=== PATIENT | male | born 1965 | race Caucasian/White ===

== ENCOUNTER 2017-06-23 22:28 | Emergency (ER) | payer OTHER ==
[~2017-06-23] VITALS: Ht 177.8 cm; Wt 86.2 kg
[~2017-06-23 22:28] MED LIST: BENTYL10 M1 PO; ZOFRAN4 M2 PO
--- NOTE | 2017-06-23 22:54 | ED GI/GU/ABDOMINAL COMPLAINT ---
History of Present Illness General Chief Complaint: Nausea, Vomiting, Diarrhea Stated Complaint: +N/V/D SINCE NOON Source: patient, old records Exam Limitations: no limitations Vital Signs & Intake/Output Vital Signs & Intake/Output Vital Signs Date Time Temp Pulse Resp B/P B/P Pulse O2 O2 Flow FiO2 Mean Ox Delivery Rate 06/24 0105 98.9 90 16 112/60 98 Room Air 06/23 2243 100.3 110 19 103/69 98 Room Air ED Intake and Output 06/24 0000 06/23 1200 Intake Total Output Total Balance Patient 190 lb Weight Weight Estimated Measurement Method Allergies Coded Allergies: No Known Allergies (06/15/16) Reconcile Medications Dicyclomine Hydrochloride (Bentyl) 10 MG CAPSULE 1 CAP PO TID PRN CRAMPS Hyoscyamine Sulfate (Levsin-Sl) 0.125 MG TAB.SUBL 1 TAB SL Q4P PRN abdominal cramping Ondansetron (Zofran Odt) 4 MG TAB.RAPDIS 1 TAB SL TID PRN nausea Ondansetron HCl (Zofran) 4 MG TABLET 1 TAB PO Q8P NAUSEA Triage Note: RECEIVED 51 YO MALE C/O NAUSEA, VOMITING, DIARRHEA AND ABDOMINAL PAIN, STARTED TODAY ABOUT 12 NOON. PT VOMITED MANY TIMES. Triage Nurses Notes Reviewed? yes Onset: Abrupt Duration: hour(s): Timing: recent history Quality/Severity: cramping, moderate Severity Numbers: 8 Location: generalized abdomen HPI: 51yo male presents to ED complaining of nausea and vomiting beginning today around noon. Patient states that he ate a breakfast as normal however following onset of symptoms he has not been able to tolerate food or liquids. Patient states he has had similar symptoms in the past, last approximately 1 year ago. Patient complaining of generalized abdominal pain, described as cramping, /10. He denies fevers, chills, diarrhea, constipation, recent travel, changes in diet , consumption of raw meats, sick contact. (Nena CAREY,Suad Reed) Past History Travel History Traveled to [place] past 21 day No Medical History Any Pertinent Medical History? none Neurological: NONE EENT: NONE Cardiovascular: NONE Respiratory: NONE Gastrointestinal: NONE Hepatic: NONE Renal: NONE Musculoskeletal: NONE Psychiatric: NONE Endocrine: NONE Blood Disorders: NONE Cancer(s): NONE Surgical History Surgical History: hernia repair Psychosocial History What is your primary language Swiss Tobacco Use: Never used Family History Hx Contributory? No (Suad Hodges) Review of Systems Review of Systems Constitutional: Reports: no symptoms. EENTM: Reports: no symptoms. Respiratory: Reports: no symptoms. Cardiovascular: Reports: no symptoms. GI: Reports: see HPI. Genitourinary: Reports: no symptoms. Musculoskeletal: Reports: no symptoms. Skin: Reports: no symptoms. Neurological/Psychological: Reports: no symptoms. Hematologic/Endocrine: Reports: no symptoms. Immunologic/Allergic: Reports: no symptoms. All Other Systems: Reviewed and Negative (Suad Hodges) Physical Exam Physical Exam General Appearance: well developed/nourished, no apparent distress, alert, awake Head: atraumatic, normal appearance Eyes: Bilateral: normal appearance. Ears, Nose, Throat, Mouth: hearing grossly normal Neck: normal inspection, supple, full range of motion Respiratory: normal breath sounds, no respiratory distress, lungs clear Cardiovascular: regular rate/rhythm Gastrointestinal: normal bowel sounds, soft, non-tender, no organomegaly Back: normal inspection, normal range of motion Extremities: normal range of motion Neurologic/Psych: awake, alert, oriented x 3 Skin: intact, normal color, warm/dry Core Measures ACS in differential dx? No Sepsis Present: No Sepsis Focused Exam Completed? No (Suad Hodges) Progress Differential Diagnosis: appendicitis, biliary colic, bowel obstruction, diverticulitis, gastritis, hernia, inflamm bowel dis, pancreatitis, peptic ulcer , PUD/GERD, perforated viscous, SBO Plan of Care: Orders Procedure Date/time Status LIPASE 06/23 2253 Complete COMPREHENSIVE METABOLIC PANEL 06/23 2253 Complete CBC WITHOUT DIFFERENTIAL 06/23 2253 Complete AMYLASE 06/23 2253 Complete Laboratory Tests 06/23/17 2319: Anion Gap 12, Estimated GFR > 60, BUN/Creatinine Ratio 16.0, Glucose 116 H, Calcium 9.6, Total Bilirubin 1.0, AST 37, ALT 68, Alkaline Phosphatase 71, Total Protein 7.3, Albumin 4.4, Globulin 2.9, Albumin/Globulin Ratio 1.5, Amylase 55, Lipase 141, CBC w Diff MAN DIFF ORDERED, RBC 5.64, MCV 86.9, MCH 30.0, RDW 13.0, MPV 8.6, Gran % 91.0 H, Lymphocytes % 4.3 L, Monocytes % 4.5, Eosinophils % 0.2, Basophils % 0, Absolute Granulocytes 8.4 H, Absolute Lymphocytes 0.4 L, Absolute Monocytes 0.4, Absolute Eosinophils 0, Absolute Basophils 0, Platelet Estimate ADEQUATE, Normocytic RBCs VERIFIED, Normochromic RBCs VERIFIED, PUBS MCHC 34.5 Patient's blood work is within normal limits. Given patient's significant abdominal pain described as 01/29 he was offered abdominal CT scan to further evaluate for intra-abdominal pathology however he wishes to wait and see how he feels following pain medication. Patient reports improvement in pain following IV Zofran, acetaminophen, by mouth Levsin. Patient feels ready to go home at this time. Patient again offered CT scan to further evaluate his abdominal pain however he declines. Patient will take medications at home and return if he has any worsening symptoms or other concerns. Patient in no acute distress, nontoxic appearing. Vital signs are stable. The patient agrees with the plan of care. Initial ED EKG: none (Nena CAREY,Suad Reed) Departure Departure Disposition: STILL A PATIENT Condition: Stable Clinical Impression Primary Impression: Abdominal pain Qualifiers: Abdominal location: generalized Qualified Code: R10.84 - Generalized abdominal pain Secondary Impressions: Nausea & vomiting Qualifiers: Vomiting type: unspecified Vomiting Intractability: non-intractable Qualified Code: R11.2 - Nausea with vomiting, unspecified Referrals: Deidra ENGLE,Elliott Aguilar (PCP/Family) Additional Instructions: Take Zofran as prescribed as needed for nausea. Take Lasix and aspirin prescribed as needed for abdominal cramping, this medication may cause constipation. He developed constipation please discontinue this medication. If you develop worsening abdominal pain or other symptoms please return to the emergency department. Otherwise follow-up with her primary care doctor. Slowly advance your diet from clear liquids to soft foods as tolerated. Please note that there might be incidental findings in your evaluation that are unrelated to the current emergency department visit. Please notify your primary care doctor about this emergency department visit in order to obtain and review all of the testing performed so that these incidental findings can be monitored as needed. If you had an x-ray performed, please understand that some fractures may not be seen on the initial set of x-rays. If your symptoms persist you might need a repeat set of x-rays to check for such a fracture. If you had a laceration evaluated, please understand that foreign bodies such as glass or wood may not be visible to the naked eye or on plain x-rays. If the wound becomes red, swollen, increasingly more painful or if there is any drainage from the wound, please have it reevaluated by a physician for the possibility of a retained foreign body. If you're unable to follow up as outlined in the discharge instructions please return to the emergency department. Thank you for choosing the [facility] Emergency Department for your care. It was a pleasure to serve you today. Departure Forms: Customer Survey General Discharge Information Prescriptions: Current Visit Scripts Ondansetron (Zofran Odt) 1 TAB SL TID PRN nausea #10 TAB Hyoscyamine Sulfate (Levsin-Sl) 1 TAB SL Q4P PRN abdominal cramping #15 TAB (Nena CAREY,Suad Reed) PA/DOCUMENT REVIEWER Co-Sign Statement Statement: ED Attending supervision documentation- [] I saw and evaluated the patient. I have also reviewed all the pertinent lab results and diagnostic results. I agree with the findings and the plan of care as documented in the PA's/DOCUMENT REVIEWER's documentation. [x] I have reviewed the ED Record and agree with the PA's/DOCUMENT REVIEWER's documentation. [] Additions or exceptions (if any) to the PAs/DOCUMENT REVIEWER's note and plan are summarized below: [] (Diony ENGLE,Nikita Swenson)
[2017-06-23 23:32] LABS: ABSOLUTE BASOPHIL COUNT 0 /CUMM (0.0-0.2); ABSOLUTE EOSINOPHIL COUNT 0 /CUMM (0.0-0.7); ABSOLUTE GRANULOCYTE CT 8.4 /CUMM (1.4-6.5); ABSOLUTE LYMPH COUNT 0.4 /CUMM (1.2-3.4); ABSOLUTE MONOCYTE COUNT 0.4 /CUMM (0.10-0.60); BASOPHIL % 0 % (0.0-2.0); EOSINOPHIL % 0.2 % (0-5); MEAN CORPUSCULAR HGB CONC 34.5 G/DL (33.0-37.0); MEAN CORPUSCULAR VOLUME 86.9 FL (80.0-94.0); MEAN PLATELET VOLUME 8.6 FL (7.4-10.4); PLATELET COUNT 254 /CUMM (130-400); RED BLOOD CELL CT 5.64 /CUMM (4.70-6.10); WHITE BLOOD CELL COUNT 9.3 /CUMM (4.8-10.8)
[2017-06-24] MEDS ORDERED: LEVSIN-SL0.125 MG SL (00:58)
[2017-06-24] MEDS ORDERED: ZOFRAN ODT4 M1 SL (00:58)
[2017-06-24 01:05] VITALS: BP 112/60
== END 2017-06-24 01:06 ==
LOC: ERH 22:28
PROVIDERS: Physician Assistant
DX: R11.2 Nausea with vomiting, unspecified (principal); R10.84 Generalized abdominal pain
CPT/HCPCS: 96361; 96374; 96375; J0131; J2405